=== PATIENT | female | born 1930 | race Caucasian/White ===

== ENCOUNTER 2017-02-27 22:04 | Emergency (ER) | payer OTHER ==
[~2017-02-27] VITALS: Ht 162.6 cm; Wt 54.9 kg
[~2017-02-27 22:04] MED LIST: CALCIUM PO; DAILY VITAMIN1 EAC4 PO; ESTER-C 500 MG1 EACH PO; FOLIC ACID1 MG ORAL; FOLIC ACID1 MG PO; LABETALOL HCL100 MG ORAL; LOSARTAN POTAS100 MG PO; OMEGA 3 1,0001 EACH PO; TRAMADOL HCL50 MG PO; VIT B 12 PO; vit e
[2017-02-27 22:25] VITALS: BP 174/66
[2017-02-27] MEDS ORDERED: AUGMENTIN 875-1 EAC1 ORAL (23:47)
[2017-02-27 23:56] VITALS: BP 174/66
[2017-02-28] MEDS ORDERED: Tetanus/Diptheria/Pertussis Vaccine 0.5ml Syr IM ONE
--- NOTE | 2017-02-28 01:19 | Emergency Room Report ---
History of Present Illness General Chief Complaint: Upper Extremity Injury Source: Patient Present Illness HPI 86-year-old female with pain to dorsal aspect of right hand after her cat bit her Only one puncture wound, denies any other bites or scratches Patient was on warfarin, but stopped because of upcoming surgery On any other anticoagulation states initially bleeding was difficult to control but stopped with pressure Unknown last tetanus, likely greater than 10 years Allergies: Coded Allergies: ASPIRIN (Verified Allergy, Mild, 06/09/08) IBUPROFEN (Verified Allergy, Mild, 01/16/11) IODINE (Verified Allergy, Mild, 06/09/08) AMLODIPINE (Verified Allergy, Unknown, SWELLING, 02/23/15) CARVEDILOL (Verified Allergy, Unknown, TIRED, 02/23/15) GABAPENTIN (Verified Allergy, Unknown, MEMORY LOSS, 02/23/15) HYDROCHLOROTHIAZIDE (Verified Allergy, Unknown, TOO MUCH URINATION, ) LISINOPRIL (Verified Allergy, Unknown, COUGH, 02/23/15) Uncoded Allergies: ALL ANTIARTHRITIC MEDICINE (Allergy, Intermediate, 02/06/12) BLEEDING NSAIDS(NON-STEROIDAL ANTI-INFLAMMAT (Allergy, Unknown, NAUSEA AND VOMITING , 02/23/15) Patient History Past Medical History: see triage record, old chart reviewed Past Surgical History: none Pertinent Family History: none Social History: Denies: smoking, alcohol use, drug use Last Menstrual Period: na Immunizations: UTD Reviewed Nursing Documentation: PMH: Agreed, PSxH: Agreed Nursing Documentation-PMH Hx Cardiac Problems: No - right hip replacement, chronic back pain Hx Hypertension: No Hx Cancer: No Hx Gastrointestinal Problems: No Hx Neurological Problems: No Hx Vertigo: Yes Hx Dizziness: Yes Hx Syncope: Yes Hx Headaches: Yes Hx Numbness: Yes - left foot Hx Weakness: Yes Hx Fatigue: Yes Review of Systems All Other Systems: negative except mentioned in HPI Physical Exam Vital Signs Date Time Temp Pulse Resp B/P (MAP) Pulse Ox O2 Delivery O2 Flow Rate FiO2 02/27/17 22:23 97.3 80 18 174/66 96 Room Air Sp02 EP Interpretation: reviewed, normal General Appearance: normal inspection, well appearing, no apparent distress, alert, GCS 15, non-toxic Head: normocephalic, atraumatic Eyes: bilateral eye PERRL, bilateral eye EOMI ENT: normal ENT inspection, hearing grossly normal, normal voice Neck: normal inspection, full range of motion, supple, no bony tend Respiratory: normal inspection, lungs clear, normal breath sounds, no respiratory distress, no retraction, no wheezing Cardiovascular #1: regular rate, rhythm, no edema Gastrointestinal: normal inspection, normal bowel sounds, non tender, soft, no guarding, no hernia Genitourinary: no CVA tenderness Musculoskeletal: normal inspection, back normal, normal range of motion, Mckenzie' s Sign negative, other - right hand: 1 cm puncture wound to the dorsal aspect. No obvious bleeding. Mild swelling to area. Neurologic: normal inspection, alert, responsive, speech normal Psychiatric: normal inspection, judgement/insight normal, mood/affect normal Skin: normal inspection, normal color, no rash Medical Decision Making Diagnostic Impression: Primary Impression: Cat bite Qualified Codes: W55.01XA - Bitten by cat, initial encounter ER Course 86-year-old female with cat Bite to right hand Tetanus updated Prophylactic antibiotics prescribed Wound cleaned and dressed ER course: Patient has remained stable during ED stay. Patient is to be discharged to home. Prescriptions given are augmetin Patient is instructed to follow up with their primary care doctor within 5 days. Strict return precautions discussed with patient such as fever, chills, worsening/severe pain, nausea, vomiting, which may indicate severe illness. Patient verbalizes understanding and agrees with plan. Please note that this Emergency Department Report was dictated using [employer] department intern technology software, occasionally this can lead to erroneous entry secondary to interpretation by the dictation equipment Last Vital Signs Date Time Temp Pulse Resp B/P (MAP) Pulse Ox O2 Delivery O2 Flow Rate FiO2 02/27/17 23:56 97.3 18 174/66 96 Room Air 02/27/17 22:23 80 Status: improved Disposition: HOME, SELF-CARE Condition: Improved Scripts Amoxicillin/Potassium Clav 875-125* (AUGMENTIN 875-125 TABLET*) 1 Each Tablet 1 TAB ORAL TWICE A DAY for 5 Days, #10 TAB Prov: JANE DEMPSEY M.D. 02/27/17 Referrals: [facility],REFERRING (PCP) Patient Instructions: Animal Bite, [id number] JANE DEMPSEY M.D. Feb 28, 2017 01:19
== END 2017-02-27 23:56 | disposition home or self-care (01) ==
LOC: EMR 22:15
DX: S61.431A Puncture wound without foreign body of right hand, initial encounter (principal); W55.01XA Bitten by cat, initial encounter; Y92.9 Unspecified place or not applicable; Z23 Encounter for immunization; Z88.6 Allergy status to analgesic agent; Z88.8 Allergy status to other drugs, medicaments and biological substances
CPT/HCPCS: 90471; 90715; 99283